=== PATIENT | female | born 1965 | race Caucasian/White ===

== ENCOUNTER 2017-03-10 12:58 | Day surgery (SDC) | payer OTHER ==
[~2017-03-10] VITALS: Ht 144.8 cm; Wt 59.6 kg
[2017-03-10 13:38] VITALS: Ht 144.8 cm; Wt 59.6 kg
[2017-03-10] MEDS ORDERED: LIDOCAINE 4% SOLUTION 50 ML BTL ONE (15:04)
--- NOTE | 2017-03-10 15:26 | OPPN ---
Date/Time of Note Date/Time of Note DATE: 03/10/17 TIME: 15:24 Operative Report Preoperative Diagnosis Gastroesophageal reflux abdominal pain Postoperative Diagnosis Esophagitis with small hiatus hernia Operation/Procedure Performed EGD biopsy of the distal esophagus at 36 cm random gastric biopsies Surgeon see signature line marketing administrative assistant None Anesthesia: moderate sedation (Versed 2.5MG/fentanyl 50 mcg history of pharynx anesthetized with 4% Xylocaine total moderate sedation time 18 minutes) Estimated blood loss: none Transfusion Required none Specimen Random gastric biopsy nodular area GE junction at 36 cm above the hiatus hernia Grafts/Implants none Complications none KIMBERLY HERNANDEZ MD Mar 10, 2017 15:26
[2017-03-10 16:00] VITALS: BP 114/64; PULSE 67; RESP 20
[2017-03-10] MEDS ORDERED: FENTAnyl 50 MCG/ML VIAL ONE (16:26)
[2017-03-10] MEDS ORDERED: MIDAZOLAM 1 MG/ML 2 ML INJ ONE ×2 (16:26→16:27)
--- NOTE | 2017-03-11 07:07 | GILP ---
DATE OF PROCEDURE: PREOPERATIVE DIAGNOSIS: Abdominal pain, gastroesophageal reflux. PROCEDURE DONE: Esophagogastroduodenoscopy and biopsy of the distal esophagus, nodularity and rando m gastric biopsies. DESCRIPTION OF PROCEDURE: The patient was put in left lateral decubitus after obtaining informed co nsent. She was sedated with 2.5 mg IV Versed and 50 mcg of fentanyl, and also I used for 4% Xylocai ne to gargle the posterior pharynx. Then advanced an Olympus video upper endoscope into the esophag us, stomach and duodenum. A 3 cm hiatus hernia noted. GE junction had some nodularity with mild es ophagitis. This was biopsied. In the stomach by retroflexion hiatus hernia was seen and in the bod y and antrum and stomach, there was gastritis. Random biopsy was done. Duodenum is unremarkable an d then scope was withdrawn after biopsies. The patient had no complication. PLAN: Will be to put her on Omeprazole 20 mg every day and follow up as outpatient in my office in the next 3 to 4 weeks. Dictated By: KIMBERLY EGAN Conf#: [id number] DID#: [id number] CC: ; José Miguel Robin;*End*
== END 2017-03-10 16:09 | disposition home or self-care (01) ==
LOC: GIL 12:58
PROVIDERS: ATTEND Internal Medicine
DX: K21.0 Gastro-esophageal reflux disease with esophagitis (principal); K44.9 Diaphragmatic hernia without obstruction or gangrene
CPT/HCPCS: 84703; 88305; 88312; 88313; J2250; J3010